=== PATIENT | female | born 1975 | race American Indian/Alaskan Native ===

== ENCOUNTER 2020-04-01 13:24 | Emergency (ER) | payer BC, OTHER ==
[2020-04-01] MEDS ORDERED: Sodium Chloride 0.9% 10 ML Syringe FLUSH PRN (13:58)
--- NOTE | 2020-04-01 14:09 | EDM.PDOC ---
ED HPI GENERAL MEDICAL PROBLEM - General Chief Complaint: General Stated Complaint: ANEMIC AND FEELING DIZZY Time Seen by Provider: 04/01/20 13:56 Source of Information: Reports: Patient, RN Notes Reviewed History Limitations: Reports: No Limitations - History of Present Illness INITIAL COMMENTS - FREE TEXT/NARRATIVE: Patient is a 44-year-old female who presents to the ED for just not feeling well. Patient notes she has anemia, and she has been feeling dizzy over the last few days. She notes that she has been having issues with this for a few months, she seen a airborne electronics analyst in December, but did not really get a definitive plan, and went back to the airborne electronics analyst last week, and her counts were found to be lower, ferritin was 1.0, her hemoglobin was 9.5, and hematocrit was 32.3. Patient is supposed to start iron infusions this at [facility] in [place]. Patient notes that however over the last few days again she is just not been feeling quite right, she feels dizzy/lightheaded, she has absolutely no energy to do anything, and she states that she gets quite winded when she has to do any sort of activity. She also states today that her back is started to h urt. She is complaining of some ringing in her ears. Patient is been dealing with migraines as well, has seen a neurologist and he thinks part of it is migraines however he also thinks that part of it is the ongoing nina with the anemia. She has had no fevers or chills, cough/nausea/vomiting/diarrhea. She was tested for COVID-19 on and this was negative. Right Lower Back Pain Score (Numeric/FACES): 8 Left Chest Pain Score (Numeric/FACES): 0 - Related Data Allergies Allergy/AdvReac Type Severity Reaction Status Date / Time acetaminophen [From Tylox] Allergy Hallucinati Verified 01/05/15 12:25 ons gentamicin [Gentamicin] Allergy Swelling Verified 01/05/15 12:26 hydromorphone HCl Allergy Itching Verified 01/05/15 15:34 [From Dilaudid] oxycodone HCl [From Tylox] Allergy Hallucinati Verified 01/05/15 12:25 ons Home Meds: Home Meds Venlafaxine [Effexor] 75 mg PO DAILY 04/01/20 [History] Past Medical History Cardiovascular History: Reports: Heart Murmur Neurological History: Reports: Migraines Other Neuro History: using effexor Hematologic History: Reports: Anemia Social & Family History - Tobacco Use Tobacco Use Status *Q: Never Tobacco User - Caffeine Use Caffeine Use: Reports: None - Recreational Drug Use Recreational Drug Use: No ED ROS GENERAL - Review of Systems Review Of Systems: Comprehensive ROS is negative, except as noted in HPI. ED EXAM, GENERAL - Physical Exam Exam: See Below Exam Limited By: No Limitations General Appearance: Alert, WD/WN, No Apparent Distress Respiratory/Chest: No Respiratory Distress, Lungs Clear, Normal Breath Sounds, No Accessory Muscle Use, Chest Non-Tender Cardiovascular: Normal Peripheral Pulses, Regular Rate, Rhythm, No Edema Peripheral Pulses: 2+: Radial (L), Radial (R) Neurological: Alert, Oriented, Normal Cognition, No Motor/Sensory Deficits Psychiatric: Normal Affect, Normal Mood Skin Exam: Warm, Dry, Intact, No Rash, Pallor (generalized pallor) Course - Vital Signs Last Recorded V/S: Last Vital Signs Temp 97.7 F 04/01/20 13:39 Pulse 70 04/01/20 13:39 Resp 20 04/01/20 13:39 BP 132/70 04/01/20 13:39 Pulse Ox 99 04/01/20 13:39 Orthostatic Blood Pressure [ 132/69 Standing] Orthostatic Blood Pressure [ 145/79 Sitting] Orthostatic Blood Pressure [ 132/70 Supine] - Orders/Labs/Meds Orders: Active Orders 24 hr Category Date Time Status Peripheral IV Care [RC] . DIRECTED Care 04/01/20 13:58 Active PATIENT RETYPE [BBK] Routine Lab 04/01/20 15:10 Ordered Sodium Chloride 0.9% [Saline Flush] Med 04/01/20 13:58 Active 10 ml FLUSH ASDIRECTED PRN Peripheral IV Insertion Adult [OM.PC] Routine Oth 04/01/20 13:58 Ordered Medication Orders Sodium Chloride (Saline Flush) 10 ml FLUSH ASDIRECTED PRN PRN Reason: Keep Vein Open Last Admin: 04/01/20 14:15 Dose: 10 ml Documented by: CLAYTON Labs: Laboratory Tests 04/01/20 04/01/20 04/01/20 Range/Units 14:10 14:15 14:15 WBC 8.23 (3.98-10.04) K/mm3 RBC 4.55 (3.98-5.22) M/mm3 Hgb 9.2 L D (11.2-15.7) gm/dl Hct 31.5 L (34.1-44.9) % MCV 69.2 L D (79.4-94.8) fl MCH 20.2 L (25.6-32.2) pg MCHC 29.2 L (32.2-35.5) g/dl RDW Std Deviation 40.6 (36.4-46.3) fL Plt Count 600 H D (182-369) K/mm3 MPV 8.6 L (9.4-12.3) fl Neut % (Auto) 50.1 (34.0-71.1) % Lymph % (Auto) 38.8 (19.3-51.7) % [place] % (Auto) 8.1 (4.7-12.5) % Eos % (Auto) 2.4 (0.7-5.8) Baso % (Auto) 0.5 (0.1-1.2) % Neut # (Auto) 4.12 (1.56-6.13) K/mm3 Lymph # (Auto) 3.19 (1.18-3.74) K/mm3 [place] # (Auto) 0.67 H (0.24-0.36) K/mm3 Eos # (Auto) 0.20 (0.04-0.36) K/mm3 Baso # (Auto) 0.04 (0.01-0.08) K/mm3 Manual Slide Review Abnormal smear Sodium 142 (136-145) mEq/L Potassium 3.8 (3.5-5.1) mEq/L Chloride 105 (98-107) mEq/L Carbon Dioxide 28 (21-32) mEq/L Anion Gap 12.8 (5-15) BUN 12 (7-18) mg/dL Creatinine 0.6 (0.55-1.02) mg/dL Est Cr Clr Drug Dosing 84.15 mL/min Estimated GFR (MDRD) > 60 (>60) mL/min BUN/Creatinine Ratio 20.0 H (14-18) Glucose 82 (74-106) mg/dL Calcium 8.5 (8.5-10.1) mg/dL Magnesium 2.0 (1.8-2.4) mg/dl Total Bilirubin 0.1 L (0.2-1.0) mg/dL AST 25 (15-37) U/L ALT 28 (14-59) U/L Alkaline Phosphatase 100 (46-116) U/L Total Protein 7.8 (6.4-8.2) g/dl Albumin 3.4 (3.4-5.0) g/dl Globulin 4.4 gm/dL Albumin/Globulin Ratio 0.8 L (1-2) Urine Color Yellow (Yellow) Urine Appearance Clear (Clear) Urine pH 6.5 (5.0-8.0) Ur Specific [place] > or = 1.030 (1.005-1.030) Urine Protein Negative (Negative) Urine Glucose (UA) Negative (Negative) Urine Ketones Negative (Negative) Urine Occult Blood Negative (Negative) Urine Nitrite Negative (Negative) Urine Bilirubin Negative (Negative) Urine Urobilinogen 0.2 (0.2-1.0) Ur Leukocyte Esterase Negative (Negative) Urine RBC 0-5 (0-5) /hpf Urine WBC Not seen (0-5) /hpf Ur Epithelial Cells 0-5 (0-5) /hpf Urine Bacteria Rare (FEW) /hpf Urine Mucus Moderate H (FEW) /hpf Blood Type Gel Antibody Screen 04/01/20 Range/Units 14:15 WBC (3.98-10.04) K/mm3 RBC (3.98-5.22) M/mm3 Hgb (11.2-15.7) gm/dl Hct (34.1-44.9) % MCV (79.4-94.8) fl MCH (25.6-32.2) pg MCHC (32.2-35.5) g/dl RDW Std Deviation (36.4-46.3) fL Plt Count (182-369) K/mm3 MPV (9.4-12.3) fl Neut % (Auto) (34.0-71.1) % Lymph % (Auto) (19.3-51.7) % [place] % (Auto) (4.7-12.5) % Eos % (Auto) (0.7-5.8) Baso % (Auto) (0.1-1.2) % Neut # (Auto) (1.56-6.13) K/mm3 Lymph # (Auto) (1.18-3.74) K/mm3 [place] # (Auto) (0.24-0.36) K/mm3 Eos # (Auto) (0.04-0.36) K/mm3 Baso # (Auto) (0.01-0.08) K/mm3 Manual Slide Review Sodium (136-145) mEq/L Potassium (3.5-5.1) mEq/L Chloride (98-107) mEq/L Carbon Dioxide (21-32) mEq/L Anion Gap (5-15) BUN (7-18) mg/dL Creatinine (0.55-1.02) mg/dL Est Cr Clr Drug Dosing mL/min Estimated GFR (MDRD) (>60) mL/min BUN/Creatinine Ratio (14-18) Glucose (74-106) mg/dL Calcium (8.5-10.1) mg/dL Magnesium (1.8-2.4) mg/dl Total Bilirubin (0.2-1.0) mg/dL AST (15-37) U/L ALT (14-59) U/L Alkaline Phosphatase (46-116) U/L Total Protein (6.4-8.2) g/dl Albumin (3.4-5.0) g/dl Globulin gm/dL Albumin/Globulin Ratio (1-2) Urine Color (Yellow) Urine Appearance (Clear) Urine pH (5.0-8.0) Ur Specific [place] (1.005-1.030) Urine Protein (Negative) Urine Glucose (UA) (Negative) Urine Ketones (Negative) Urine Occult Blood (Negative) Urine Nitrite (Negative) Urine Bilirubin (Negative) Urine Urobilinogen (0.2-1.0) Ur Leukocyte Esterase (Negative) Urine RBC (0-5) /hpf Urine WBC (0-5) /hpf Ur Epithelial Cells (0-5) /hpf Urine Bacteria (FEW) /hpf Urine Mucus (FEW) /hpf Blood Type O POSITIVE Gel Antibody Screen Negative Meds: Medications Generic Name Dose Route Start Last Admin Trade Name Freq PRN Reason Stop Dose Admin Sodium Chloride 10 ml 04/01/20 13:58 04/01/20 14:15 Saline Flush FLUSH 10 ml ASDIRECTED PRN Administration Keep Vein Open - Re-Assessments/Exams Free Text/Narrative Re-Assessment/Exam: 04/01/20 14:08 Patient presents to the ED for evaluation of just not feeling well, with suspected worsening anemia. We will go ahead and repeat some labs for today's purposes, patient states she is was a go to [place] for her iron infusion, if everything turns out fairly okay I might call [facility] in [place], and see if this cannot be pushed sooner, and maybe see if this can be done in [place] versus having to travel to [place]. 04/01/20 15:09 The patient's hemoglobin is 9.2, hematocrit is 31.5. Unfortunately her levels are not low enough to meet urgent transfusion in the ER, I did call [facility] in [place], and they will put a telephone note in her chart, to reach out to Dr. Maciel's clinic, to get the infusion moved up in date, and possibly moved to [place]. I will relay this information to the patient. Patient will have to call Dr. Maciel's office tomorrow. Departure - Departure Time of Disposition: 15:13 Disposition: Home, Self-Care 01 Condition: Good Clinical Impression: Back muscle spasm Anemia Qualifiers: Anemia type: iron deficiency Iron deficiency anemia type: unspecified iron deficiency Qualified Code(s): D50.9 - Iron deficiency anemia, unspecified - Discharge Information *PRESCRIPTION DRUG MONITORING PROGRAM REVIEWED*: No *COPY OF PRESCRIPTION DRUG MONITORING REPORT IN PATIENT MITLON: No Instructions: Muscle Cramps and Spasms, [id number] Referrals: Rita Brasher, CAROLINE [Primary Care Provider] - 1 Day (Phone call placed to [facility] on Thursday04/01/2020 for patient's ER visit. Requesting that Iron transfusion be expedited and that the patient's infusion be moved to [facility], so she doesn't have to to unnecessary travel.) Forms: ED Department Discharge, ED Return to Work/School Form Additional Instructions: You were seen in this ER today for your generalized feelings of being unwell, and your back pain. Laboratory evaluation does demonstrate some anemia, that you have been struggling with for some time. Unfortunately her levels are not low enough at today's visit to need emergent transfusion. A phone call was placed on your behalf to [facility] in [place], to see if we could get your transfusion of iron, move to a sooner date, and to possibly the [place] facility. The airborne electronics analyst on-call did not see that there would be an issue with that. He does recommend that you call Dr. Hurt's office in the morning, to request the transfusion sooner, to have it be moved to [place]. You may tell her that you were seen in this ER, and that she should be expecting a copy of our note. Please do this as soon as you can in the morning, to help facilitate this change in schedule. Your back pain is likely due to a back spasm in nature, there was quite diffuse spasm in the area in which you were having pain, you indicated that you already have muscle relaxers at home, I would recommend going and taking these as prescribed, and also try some Tylenol or ibuprofen every 6 hours as needed for further pain relief. Return to the ER at any time if symptoms change or worsen. Sepsis Event Note (ED) - Evaluation Sepsis Screening Result: No Definite Risk - Focused Exam Vital Signs: Vital Signs Temp Pulse Resp BP Pulse Ox 04/01/20 13:39 97.7 F 70 20 132/70 99 - My Orders Last 24 Hours: My Active Orders 04/01/20 13:58 Peripheral IV Care [RC] . DIRECTED Sodium Chloride 0.9% [Saline Flush] 10 ml FLUSH ASDIRECTED PRN Peripheral IV Insertion Adult [OM.PC] Routine 04/01/20 15:10 PATIENT RETYPE [BBK] Routine - Assessment/Plan Last 24 Hours: My Active Orders 04/01/20 13:58 Peripheral IV Care [RC] . DIRECTED Sodium Chloride 0.9% [Saline Flush] 10 ml FLUSH ASDIRECTED PRN Peripheral IV Insertion Adult [OM.PC] Routine 04/01/20 15:10 PATIENT RETYPE [BBK] Routine
[2020-04-01 15:59] VITALS: BP 144/68; PULSE 66
== END 2020-04-01 15:35 | disposition home or self-care (01) ==
LOC: JD.ED 13:24 → SUPCPDRO 13:24 → JD.ED 15:35
DX: D50.9 Iron deficiency anemia, unspecified (principal); M62.830 Muscle spasm of back; Z88.6 Allergy status to analgesic agent; Z88.1 Allergy status to other antibiotic agents; Z88.5 Allergy status to narcotic agent; Z79.899 Other long term (current) drug therapy
CPT/HCPCS: 36415; 80053; 81001; 83735; 85025; 86850; 86900; 86901; 99283; 99284